=== PATIENT | male | born 1985 | race Caucasian/White ===

== ENCOUNTER 2021-06-29 09:30 | Emergency (ER) | payer MEDICAID ==
[2021-06-29] MEDS ORDERED: Ketorolac 15 MG/ML SDV IVPUSH ONE (09:53)
[2021-06-29] MEDS ORDERED: Sodium Chloride 0.9% 1,000 ML IV ONE (09:53)
--- NOTE | 2021-06-29 10:00 | EDM.PDOC ---
ED HPI GENERAL MEDICAL PROBLEM - General Chief Complaint: Respiratory Problem Stated Complaint: FEVER,CHILLS,THROWING UP Time Seen by Provider: 06/29/21 09:37 Source of Information: Reports: Patient History Limitations: Reports: No Limitations - History of Present Illness INITIAL COMMENTS - FREE TEXT/NARRATIVE: Patient is a 36-year-old male presents today for not feeling well. Patient visited Covid test yesterday was negative but states he still feels chills tiredness and fatigue. States he is also has some vomiting and cannot keep any food down. Patient reports a dry cough denies any shortness of breath he also admits to some teeth pain he has been having for the past month as well. headache Pain Score (Numeric/FACES): 10 - Related Data Allergies Allergy/AdvReac Type Severity Reaction Status Date / Time No Known Allergies Allergy Verified 06/29/21 09:34 Home Meds: Home Meds . [No Known Home Meds] 06/29/21 [History] Past Medical History Genitourinary History: Reports: STD Other Genitourinary History: Herpes dx 2019 - Infectious Disease History Infectious Disease History: Reports: Chicken Pox, Herpes Social & Family History - Caffeine Use Caffeine Use: Reports: None - Recreational Drug Use Recreational Drug Use: Yes Recreational Drug Type: Reports: Marijuana/Hashish ED ROS GENERAL - Review of Systems Review Of Systems: See Below Constitutional: Reports: Malaise HEENT: Reports: No Symptoms Respiratory: Reports: No Symptoms Cardiovascular: Reports: No Symptoms Endocrine: Reports: No Symptoms GI/Abdominal: Reports: No Symptoms : Reports: No Symptoms Musculoskeletal: Reports: No Symptoms Skin: Reports: No Symptoms Neurological: Reports: No Symptoms Psychiatric: Reports: No Symptoms Hematologic/Lymphatic: Reports: No Symptoms Immunologic: Reports: No Symptoms ED EXAM, GENERAL - Physical Exam Exam: See Below Exam Limited By: No Limitations General Appearance: Alert, WD/WN, No Apparent Distress Eye Exam: Bilateral Eye: EOMI Ears: Normal External Exam Nose: Normal Inspection Throat/Mouth: Other (Poor senior care) Head: Atraumatic Respiratory/Chest: No Respiratory Distress, Lungs Clear, Normal Breath Sounds Cardiovascular: Normal Peripheral Pulses, Regular Rate, Rhythm GI/Abdominal: Normal Bowel Sounds, Soft, Non-Tender Extremities: Normal Inspection Neurological: Alert, Oriented, Normal Cognition, Normal Gait Course - Vital Signs Last Recorded V/S: Last Vital Signs Temp 99.9 F 06/29/21 11:19 Pulse 121 H 06/29/21 11:19 Resp 18 06/29/21 11:19 BP 125/54 L 06/29/21 11:19 Pulse Ox 97 06/29/21 11:19 - Orders/Labs/Meds Orders: Active Orders 24 hr Category Date Time Status Chest 1V Frontal [CR] Stat Exams 06/29/21 10:42 Taken Labs: Laboratory Tests 06/29/21 06/29/21 06/29/21 Range/Units 09:45 10:07 10:07 WBC 6.70 (4.0-11.0) K/uL RBC 4.76 (4.50-5.90) M/uL Hgb 14.4 (13.0-17.0) g/dL Hct 42.3 (38.0-50.0) % MCV 88.9 (80.0-98.0) fL MCH 30.3 (27.0-32.0) pg MCHC 34.0 (31.0-37.0) g/dL RDW Std Deviation 43.6 (28.0-62.0) fl RDW Coeff of Pasha 13 (11.0-15.0) % Plt Count 272 (150-400) K/uL MPV 10.00 (7.40-12.00) fL Neut % (Auto) 70.9 (48.0-80.0) % Lymph % (Auto) 12.8 L (16.0-40.0) % [place] % (Auto) 14.6 (0.0-15.0) % Eos % (Auto) 1.3 (0.0-7.0) % Baso % (Auto) 0.4 (0.0-1.5) % Neut # (Auto) 4.7 (1.4-5.7) K/uL Lymph # (Auto) 0.9 (0.6-2.4) K/uL [place] # (Auto) 1.0 H (0.0-0.8) K/uL Eos # (Auto) 0.1 (0.0-0.7) K/uL Baso # (Auto) 0.0 (0.0-0.1) K/uL Nucleated RBC % 0.0 /100WBC Nucleated RBCs # 0 K/uL Sodium 136 (136-148) mmol/L Potassium 3.6 (3.5-5.1) mmol/L Chloride 99 (98-107) mmol/L Carbon Dioxide 25.2 (21.0-32.0) mmol/L BUN 10 (7.0-18.0) mg/dL Creatinine 1.1 (0.8-1.3) mg/dL Est Cr Clr Drug Dosing 95.30 mL/min Estimated GFR (MDRD) > 60.0 ml/min Glucose 111 H (74-106) mg/dL Calcium 8.5 (8.5-10.1) mg/dL Total Bilirubin 0.2 (0.2-1.0) mg/dL AST 14 L (15-37) IU/L ALT 35 (14-63) IU/L Alkaline Phosphatase 67 (46-116) U/L Total Protein 7.2 (6.4-8.2) g/dL Albumin 3.3 L (3.4-5.0) g/dL Globulin 3.9 (2.6-4.0) g/dL Albumin/Globulin Ratio 0.9 (0.9-1.6) Influenza Type A RNA NEGATIVE (NEGATIVE) Influenza Type B RNA NEGATIVE (NEGATIVE) SARS-CoV-2 RNA (VIRGEN) POSITIVE H (NEGATIVE) Meds: Medications Discontinued Medications Generic Name Dose Route Start Last Admin Trade Name Freq PRN Reason Stop Dose Admin Sodium Chloride 1,000 mls @ 999 mls/hr 06/29/21 09:53 06/29/21 10:05 Normal Saline IV 06/29/21 10:53 999 mls/hr .BOLUS ONE Administration Ketorolac Tromethamine 15 mg 06/29/21 09:53 06/29/21 10:11 Ketorolac 15 Mg/Ml Sdv IVPUSH 06/29/21 09:54 Not Given ONETIME ONE Ketorolac Tromethamine 15 mg 06/29/21 10:03 06/29/21 10:11 Ketorolac 30 Mg/Ml Sdv IVPUSH 06/29/21 10:04 15 mg ONETIME ONE Administration - Re-Assessments/Exams Free Text/Narrative Re-Assessment/Exam: 06/29/21 11:34 Patient is Covid positive likely causing the symptoms patient be discharged home with symptomatic treatment. Departure - Departure Time of Disposition: 11:34 Disposition: Home, Self-Care 01 Condition: Good Clinical Impression: COVID - Discharge Information *PRESCRIPTION DRUG MONITORING PROGRAM REVIEWED*: Not Applicable *COPY OF PRESCRIPTION DRUG MONITORING REPORT IN PATIENT DEXTER: Not Applicable Instructions: 10 Things You Can Do to Manage Your COVID-19 Symptoms at Home - [facility] (02/03/2021) Forms: ED Department Discharge Additional Instructions: Today in the ER your Covid test came back positive this is the likely cause of your symptoms. Attached is a sheet on things you can do at home to help with your symptoms. We recommend you follow with your primary care physician if you have any other concerning signs or symptoms please feel free to return to the ED. The following information is given to patients seen in the emergency department who are being discharged to home. This information is to outline your options for follow-up care. We provide all patients seen in our emergency department with a follow-up referral. The need for follow-up, as well as the timing and circumstances, are variable depending upon the specifics of your emergency department visit. If you don't have a primary care physician on staff, we will provide you with a referral. We always advise you to contact your personal physician following an emergency department visit to inform them of the circumstance of the visit and for follow-up with them and/or the need for any referrals to a consulting specialist. The emergency department will also refer you to a specialist when appropriate. This referral assures that you have the opportunity for follow-up care with a specialist. All of these measure are taken in an effort to provide you with optimal care, which includes your follow-up. Under all circumstances we always encourage you to contact your private physician who remains a resource for coordinating your care. When calling for follow-up care, please make the office aware that this follow-up is from your recent emergency room visit. If for any reason you are refused follow-up, please contact the [facility] Emergency [facility]art[facility] ent at and asked to speak to the emergency department charge nurse. Please follow up with your primary care physician. If you do not have a primary care physician, see below: [facility] [address] [place] [id number] [facility] [address] [place] [address] Sepsis Event Note (ED) - Evaluation Sepsis Screening Result: No Definite Risk - Focused Exam Vital Signs: Vital Signs Temp Temp Pulse Resp BP Pulse Ox 06/29/21 11:19 99.9 F 121 H 18 125/54 L 97 06/29/21 09:44 99.4 F 06/29/21 09:34 97.9 F 122 H 18 126/89 98 - My Orders Last 24 Hours: My Active Orders 06/29/21 10:42 Chest 1V Frontal [CR] Stat - Assessment/Plan Last 24 Hours: My Active Orders 06/29/21 10:42 Chest 1V Frontal [CR] Stat Plan: Patient is a 36-year-old male presents today for not feeling well. He has body aches and chills. He has no shortness of breath is satting 100% on room air. Will check labs give IV fluids and reassess.
[2021-06-29] MEDS ORDERED: Ketorolac 30 MG/ML SDV IVPUSH ONE (10:03)
[2021-06-29 10:41] LABS: BLOOD UREA NITROGEN,BUN 10 mg/dL (7.0-18.0); CARBON DIOXIDE,CO2 25.2 mmol/L (21.0-32.0); CHLORIDE,CL 99 mmol/L (98-107); GLUCOSE RANDOM 111 mg/dL (74-106); POTASSIUM,K 3.6 mmol/L (3.5-5.1); SODIUM,NA 136 mmol/L (136-148)
[2021-06-29 11:14] LABS: CORONAVIRUS COVID-19 NAA POSITIVE (NEGATIVE); INFLUENZA A NAA NEGATIVE (NEGATIVE); INFLUENZA B NAA NEGATIVE (NEGATIVE)
--- NOTE | 2021-06-29 11:34 | CR ---
INDICATION: Cough. Possible COVID COMPARISON: None TECHNIQUE: Single-view portable chest radiograph FINDINGS: TUBES AND LINES: None. HEART AND MEDIASTINUM: The heart size is normal. The mediastinal contour appears normal for patient age. LUNGS AND PLEURAL SPACES: The lungs appear normal.The pleural spaces are unremarkable. OSSEOUS STRUCTURES: Age-appropriate appearance. No acute focal finding. IMPRESSION: No evidence of active pulmonary disease. Dictated by Omar Sin MD @ 06/29/2021 11:33:00 AM (Electronically Signed)
== END 2021-06-29 11:54 | disposition home or self-care (01) ==
LOC: MW.ED 09:30
DX: U07.1 COVID-19 (principal)
CPT/HCPCS: 0240U; 36415; 71045; 80053; 85025; 96374; 99284; J1885; J7030